=== PATIENT | male | born 1945 | race Caucasian/White ===

== ENCOUNTER 2019-04-26 12:19 | Inpatient (IN) ==
[2019-04-26 13:43] LABS: Basophils % 0.2 % (0.0-0.8); Eosinophils % 0.1 % (0.00-10.9); Hematocrit 48.6 VOL% (42.0-52.0); Hemoglobin 15.7 GM/DL (14.0-18.0); Immature Granulocytes % 0.6 %; Immature Granulocytes Absolute 0.05 #; Lymphocytes # 1.1 10*3/uL (1.4-4.0); Lymphocytes % 12.2 % (21.2-54.2); Mean Corpuscular HGB Conc 32.3 GM/DL (32-36); Mean Platelet Volume 11.8 FL (9.6-12.0); Monocytes % 8.1 % (1.7-12.7); Neutrophils % 78.8 % (38.7-73.9); Platelet Count 203 T/CUMM (130-400); Red Blood Count 5.65 MC/CUMM (3.8-5.5); Red Cell Distribution Width 14.2 % (9.3-17.3); White Blood Count 8.9 T/CUMM (4-12)
[2019-04-26 13:52] LABS: PT Patient Result 10.9 SECS (9.6-12.2); Partial Thromboplastin Time 26.1 SECS (20.8-36.0)
[2019-04-26 14:01] LABS: Albumin 3.6 G/DL (3.4-5.0); Bilirubin,Total 0.5 MG/DL (0.2-1.0); Calcium 8.7 MG/DL (8.5-10.1); Osmolality,Calculated 281.4 MOS/KG (273-304); Total Protein 6.7 G/DL (6.4-8.3)
[2019-04-26] MEDS ORDERED: ENOXAPARIN 100 MG/ML SYRINGE SUBCUT STA (14:16)
[2019-04-26] MEDS ORDERED: NITROGLYCERIN 2% OINT 1 INCH/GM PACK TOP STA (14:17)
[2019-04-26] MEDS ORDERED: ASPIRIN CHEW 81 MG TABLET PO STA (14:18)
[2019-04-26] MEDS ORDERED: ONDANSETRON 4 MG/2 ML VIAL IV PRN (16:04)
[2019-04-26] MEDS ORDERED: ACETAMINOPHEN 325 MG TABLET PO PRN (16:04)
[2019-04-26] MEDS ORDERED: METOPROLOL TARTRATE 5 MG/5 ML VIAL IV ONE (16:16)
[2019-04-26] MEDS: SODIUM CHLORIDE 0.9% 1,000 ML IV SCH (16:33)
[2019-04-26] MEDS ORDERED: hydrALAZINE 20 MG/1 ML VIAL IV PRN (16:37)
[2019-04-26] MEDS ORDERED: carvediloL 3.125 MG TABLET PO SCH (17:00)
[2019-04-26] MEDS: NITROGLYCERIN 2% OINT 1 INCH/GM PACK TOP SCH ×2 (17:07→23:12)
[2019-04-26 17:44] LABS: Troponin I 0.605 NG/ML (0.00-0.045)
[2019-04-26 20:05] LABS: Troponin I 0.597 NG/ML (0.00-0.045)
[2019-04-26] MEDS: DOCUSATE SODIUM 100 MG CAPSULE PO SCH (20:20)
[2019-04-26] MEDS ORDERED: ROSUVASTATIN 20 MG TABLET PO SCH (21:00)
[2019-04-26 22:06] LABS: Troponin I 0.714 NG/ML (0.00-0.045)
[2019-04-27] MEDS: SODIUM CHLORIDE 0.9% 1,000 ML IV SCH ×4 (00:25→17:31)
[2019-04-27 04:47] LABS: Basophils % 0.4 % (0.0-0.8); Eosinophils % 0.5 % (0.00-10.9); Hemoglobin 14.1 GM/DL (14.0-18.0); Immature Granulocytes % 0.4 %; Immature Granulocytes Absolute 0.03 #; Lymphocytes # 1.2 10*3/uL (1.4-4.0); Mean Corpuscular HGB Conc 32.8 GM/DL (32-36); Mean Corpuscular Volume 86.9 FL (87-102); Mean Platelet Volume 12.5 FL (9.6-12.0); Monocytes % 8.7 % (1.7-12.7); Platelet Count 172 T/CUMM (130-400); Red Blood Count 4.95 MC/CUMM (3.8-5.5); Red Cell Distribution Width 14.2 % (9.3-17.3)
[2019-04-27 05:07] LABS: Calcium 8.7 MG/DL (8.5-10.1); Osmolality,Calculated 288.7 MOS/KG (273-304)
[2019-04-27 05:34] LABS: Risk Ratio 5.65; VLDL CHOLESTEROL 27.6 MG/DL
[2019-04-27] MEDS: NITROGLYCERIN 2% OINT 1 INCH/GM PACK TOP SCH (05:44)
[2019-04-27] MEDS ORDERED: diphenhydrAMINE CAP 25 MG CAPSULE PO ONE (06:00)
[2019-04-27] MEDS ORDERED: DIAZEPAM 5 MG TABLET PO ONE (06:00)
[2019-04-27] MEDS ORDERED: HEPARIN/NACL 0.9% 2 UNITS/ML 1,000 ML IV ONE (06:48)
[2019-04-27] MEDS ORDERED: NITROGLYCERIN DRIP 50 MG/250 ML BOTTLE IV ONE (06:48)
[2019-04-27] MEDS ORDERED: VERAPAMIL 5 MG/2 ML VIAL ONE (06:48)
[2019-04-27] MEDS ORDERED: LIDOCAINE 1% 20 ML VIAL ONE (06:48)
[2019-04-27] MEDS ORDERED: MIDAZOLAM 2 MG/2 ML VIAL ONE (07:24)
[2019-04-27] MEDS ORDERED: fentaNYL 100 MCG/2 ML VIAL ONE (07:24)
[2019-04-27] MEDS ORDERED: ENOXAPARIN 60 MG/0.6 ML SYRINGE ONE (07:32)
[2019-04-27] MEDS ORDERED: flumazeniL 0.5 MG/5 ML VIAL IV ONE (07:51)
[2019-04-27] MEDS ORDERED: NITROGLYCERIN SL 0.4 MG TABLET SL PRN (08:01)
[2019-04-27] MEDS ORDERED: ZALEPLON 5 MG CAPSULE PO PRN (08:01)
[2019-04-27] MEDS: ASPIRIN EC 81 MG TABLET PO SCH (10:00)
[2019-04-27] MEDS: LOSARTAN 50 MG TABLET PO SCH (10:00)
[2019-04-27] MEDS: ISOSORBIDE MONONITRATE 30 MG TABLET PO SCH (10:00)
[2019-04-27] MEDS: carvediloL 6.25 MG TABLET PO SCH ×2 (10:00→17:11)
[2019-04-27] MEDS: PANTOPRAZOLE 40 MG TABLET PO SCH (10:00)
[2019-04-27] MEDS: DOCUSATE SODIUM 100 MG CAPSULE PO SCH ×2 (10:00→20:22)
[2019-04-27] MEDS: ROSUVASTATIN 20 MG TABLET PO SCH (20:22)
[2019-04-28 04:45] LABS: Basophils % 0.3 % (0.0-0.8); Eosinophils # 0.1 10*3/uL (0.0-0.87); Eosinophils % 1.4 % (0.00-10.9); Hematocrit 42.3 VOL% (42.0-52.0); Hemoglobin 13.4 GM/DL (14.0-18.0); Immature Granulocytes % 0.3 %; Immature Granulocytes Absolute 0.02 #; Lymphocytes # 1.3 10*3/uL (1.4-4.0); Mean Corpuscular HGB Conc 31.7 GM/DL (32-36); Mean Corpuscular Volume 89.1 FL (87-102); Mean Platelet Volume 12.4 FL (9.6-12.0); Monocytes % 13.1 % (1.7-12.7); Neutrophils % 65.9 % (38.7-73.9); Platelet Count 148 T/CUMM (130-400); Red Blood Count 4.75 MC/CUMM (3.8-5.5); Red Cell Distribution Width 14.2 % (9.3-17.3)
[2019-04-28 05:11] LABS: Calcium 8.7 MG/DL (8.5-10.1); Osmolality,Calculated 286.8 MOS/KG (273-304)
[2019-04-28] MEDS ORDERED: ALPRAZolam 0.25 MG TABLET PO PRN (06:43)
[2019-04-28] MEDS: ISOSORBIDE MONONITRATE 30 MG TABLET PO SCH (08:27)
[2019-04-28] MEDS: PANTOPRAZOLE 40 MG TABLET PO SCH (08:27)
[2019-04-28] MEDS: ASPIRIN EC 81 MG TABLET PO SCH (08:27)
[2019-04-28] MEDS: LOSARTAN 50 MG TABLET PO SCH (08:27)
[2019-04-28] MEDS: carvediloL 6.25 MG TABLET PO SCH ×2 (08:27→16:53)
[2019-04-28] MEDS: DOCUSATE SODIUM 100 MG CAPSULE PO SCH ×2 (08:27→20:10)
[2019-04-28] MEDS ORDERED: AMIODARONE 200 MG TABLET PO SCH (09:00)
[2019-04-28] MEDS ORDERED: AMIODARONE INJ 450 MG in DEXTROSE 5% 241 ML IV SCH (09:00)
[2019-04-28] MEDS: SODIUM CHLORIDE 0.9% 1,000 ML IV SCH ×2 (15:27→15:33)
[2019-04-28] MEDS: AMIODARONE INJ 450 MG in DEXTROSE 5% 241 ML IV SCH (19:06)
[2019-04-28] MEDS: ROSUVASTATIN 20 MG TABLET PO SCH (20:10)
[2019-04-29] MEDS ORDERED: ALPRAZolam 0.5 MG TABLET PO ONE (04:25)
[2019-04-29 04:40] LABS: Basophils % 0.2 % (0.0-0.8); Eosinophils # 0.1 10*3/uL (0.0-0.87); Hematocrit 47.7 VOL% (42.0-52.0); Hemoglobin 15.6 GM/DL (14.0-18.0); Immature Granulocytes % 0.5 %; Immature Granulocytes Absolute 0.05 #; Lymphocytes # 1.3 10*3/uL (1.4-4.0); Lymphocytes % 12.3 % (21.2-54.2); Mean Corpuscular HGB Conc 32.7 GM/DL (32-36); Mean Corpuscular Volume 86.4 FL (87-102); Mean Platelet Volume 12.9 FL (9.6-12.0); Monocytes % 9.8 % (1.7-12.7); Neutrophils % 76.2 % (38.7-73.9); Platelet Count 190 T/CUMM (130-400); Red Blood Count 5.52 MC/CUMM (3.8-5.5); Red Cell Distribution Width 14.3 % (9.3-17.3); White Blood Count 10.8 T/CUMM (4-12)
[2019-04-29] MEDS ORDERED: FUROSEMIDE 40 MG/4 ML VIAL IV ONE (04:54)
[2019-04-29 05:00] LABS: Calcium 8.9 MG/DL (8.5-10.1); Osmolality,Calculated 277.8 MOS/KG (273-304)
[2019-04-29] MEDS ORDERED: FUROSEMIDE 40 MG/4 ML VIAL IV SCH (09:00)
[2019-04-29] MEDS: ASPIRIN EC 81 MG TABLET PO SCH (09:16)
[2019-04-29] MEDS: ALPRAZolam 0.5 MG TABLET PO PRN (09:16)
[2019-04-29] MEDS: PANTOPRAZOLE 40 MG TABLET PO SCH (09:17)
[2019-04-29] MEDS: DOCUSATE SODIUM 100 MG CAPSULE PO SCH ×2 (09:17→21:05)
[2019-04-29] MEDS: LOSARTAN 50 MG TABLET PO SCH (09:17)
[2019-04-29] MEDS: carvediloL 6.25 MG TABLET PO SCH ×2 (09:17→17:08)
[2019-04-29] MEDS: SODIUM CHLORIDE 0.9% 1,000 ML IV SCH (11:20)
[2019-04-29] MEDS: AMIODARONE INJ 450 MG in DEXTROSE 5% 241 ML IV SCH (11:21)
[2019-04-29] MEDS: NITROGLYCERIN 2% OINT 1 INCH/GM PACK TOP SCH ×2 (13:49→17:08)
[2019-04-29] MEDS: ROSUVASTATIN 20 MG TABLET PO SCH (21:05)
[2019-04-30] MEDS: NITROGLYCERIN 2% OINT 1 INCH/GM PACK TOP SCH ×4 (00:55→18:05)
[2019-04-30 04:30] LABS: Calcium 8.3 MG/DL (8.5-10.1); Osmolality,Calculated 285.4 MOS/KG (273-304)
[2019-04-30] MEDS: SODIUM CHLORIDE 0.9% 1,000 ML IV SCH ×2 (04:30→19:50)
[2019-04-30] MEDS: ALPRAZolam 0.5 MG TABLET PO PRN (04:31)
[2019-04-30] MEDS ORDERED: DEXTROSE 10% 250 ML BAG IV PRN (08:35)
[2019-04-30] MEDS ORDERED: GLUCAGON 1 MG VIAL IM PRN (08:35)
[2019-04-30] MEDS: LOSARTAN 50 MG TABLET PO SCH (08:36)
[2019-04-30] MEDS: PANTOPRAZOLE 40 MG TABLET PO SCH (08:36)
[2019-04-30] MEDS: DOCUSATE SODIUM 100 MG CAPSULE PO SCH ×2 (08:36→20:42)
[2019-04-30] MEDS: carvediloL 6.25 MG TABLET PO SCH ×2 (08:36→16:19)
[2019-04-30] MEDS: ASPIRIN EC 81 MG TABLET PO SCH (08:36)
[2019-04-30 10:45] LABS: ABG Base Excess 0.3 MMOL/L (-2.5-2.5); ABG HCO3 24.7 MMOL/L (20-26); ABG Oxygen Saturation 99.3 % (95-100); ABG PCO2 41.7 MM HG (35-48); ABG PH 7.392 (7.35-7.45); ABG TCO2 21.6 MMOL/L (23-27)
[2019-04-30] MEDS: CHLORHEXIDINE 0.12% ORAL RINSE 60 ML BOTTLE SWISH/SPIT SCH ×2 (12:19→21:07)
[2019-04-30] MEDS: CHLORHEXIDINE 4% SOLN 118 ML BOTTLE TOP SCH ×2 (17:25→20:42)
[2019-04-30] MEDS: ROSUVASTATIN 20 MG TABLET PO SCH (20:42)
[2019-05-01] MEDS: NITROGLYCERIN 2% OINT 1 INCH/GM PACK TOP SCH ×3 (00:09→16:37)
[2019-05-01] MEDS ORDERED: VANCOMYCIN 1,000 MG VIAL ONE (04:41)
[2019-05-01] MEDS ORDERED: VANCOMYCIN 500 MG VIAL ONE (04:41)
[2019-05-01] MEDS ORDERED: PAPAVERINE 60 MG/2 ML VIAL ONE ×2 (04:41→09:39)
[2019-05-01 06:21] LABS: Calcium 8.4 MG/DL (8.5-10.1); Osmolality,Calculated 285.4 MOS/KG (273-304)
[2019-05-01] MEDS ORDERED: CEFUROXIME INJ 1,500 MG in SYRINGE 1 EACH IV ONE (06:30)
[2019-05-01] MEDS ORDERED: DIAZEPAM 5 MG TABLET PO ONE (06:30)
[2019-05-01 07:42] LABS: ABG Base Excess 0.1 MMOL/L (-2.5-2.5); ABG HCO3 24.6 MMOL/L (20-26); ABG Oxygen Saturation 99.9 % (95-100); ABG PCO2 29.1 MM HG (35-48); ABG PH 7.493 (7.35-7.45); ABG TCO2 19.5 MMOL/L (23-27); Glucose Heart Surgery 106 MG/DL (74-106); Hematocrit Heart Surgery 38.7 PERCENT (42-52); Hemoglobin Heart Surgery 12.6 G/DL (14.0-18.0); Ionized Calcium Arterial 1.26 MMOL/L (1.21-1.46); PCO2 Patient Temp Arterial 29.1 MMHG; PH Patient Temp Arterial 7.493; Patient Temperature 37 CELCIUS; Potassium Heart/CVR 3.4 MMOL/L (3.5-5.1); Sodium Heart/CVR 135 MMOL/L (135-145)
[2019-05-01 08:11] LABS: Apearance,Urine CLEAR (Clear); Bilirubin,Urine Negative (Negative); Blood, Urine Small mg/dL (Negative); Glucose,Urine (UA) Negative (Negative); Ketones,Urine Negative (Negative); Mucus,Urine Occasional /LPF (Occasional); Nitrite,Urine Negative (Negative); Protein,Urine Negative; RBC,Urine 8 /HPF (0-4); Urine Color Yellow (Yellow); Urine Specific Gravity 1.021 (1.001-1.035); Urine Urobilinogen < 2.0 EU/DL (0.2-1.0); WBC,Urine 1 /HPF (0-6)
[2019-05-01 09:20] LABS: Hematocrit Heart Surgery 31.3 PERCENT (42-52); Hemoglobin Heart Surgery 10.1 G/DL (14.0-18.0); PCO2 Patient Temp Venous 28.8 MM HG; PH Patient Temp Venous 7.535; PO2 Patient Temp Venous 35.6 MM HG; VBG Base Excess 2.3 MEQ/L (0-4); VBG HCO3 26.2 MEQ/L (24-28); VBG Oxygen Saturation 84.8 %; VBG PCO2 31.7 MMHG (41-51); VBG PH 7.504; VBG PO2 40.9 MMHG (17-40)
[2019-05-01 09:51] LABS: PCO2 Patient Temp Venous 30.2 MM HG; PH Patient Temp Venous 7.519; PO2 Patient Temp Venous 43.5 MM HG; Potassium Heart/CVR 3.5 MMOL/L (3.5-5.1); VBG Base Excess 2.3 MEQ/L (0-4); VBG HCO3 26.3 MEQ/L (24-28); VBG Oxygen Saturation 91.9 %; VBG PCO2 34.9 MMHG (41-51); VBG PH 7.474; VBG PO2 53.3 MMHG (17-40)
[2019-05-01] MEDS ORDERED: SODIUM BICARBONATE 50 MEQ/50 ML VIAL IV ONE ×2 (10:16→12:05)
[2019-05-01] MEDS ORDERED: CALCIUM CHLORIDE 1,000 MG/10 ML SYRINGE IV ONE (10:16)
[2019-05-01] MEDS ORDERED: PHENYLEPHRINE DRIP 40 MG/250 ML PREMIX IV ONE (10:16)
[2019-05-01] MEDS ORDERED: NITROPRUSSIDE 50 MG/2 ML VIAL ONE (10:16)
[2019-05-01] MEDS ORDERED: POTASSIUM CHLORIDE RIDER 100 ML IV ONE (10:17)
[2019-05-01] MEDS ORDERED: ALBUMIN 5% 12.5 GM/250 ML VIAL IV ONE (10:17)
[2019-05-01 10:21] LABS: Hematocrit Heart Surgery 32.7 PERCENT (42-52); Hemoglobin Heart Surgery 10.6 G/DL (14.0-18.0); PCO2 Patient Temp Venous 28.3 MM HG; PH Patient Temp Venous 7.547; PO2 Patient Temp Venous 40.7 MM HG; Potassium Heart/CVR 3.7 MMOL/L (3.5-5.1); VBG Base Excess 2.8 MEQ/L (0-4); VBG HCO3 26.8 MEQ/L (24-28); VBG Oxygen Saturation 92.3 %; VBG PCO2 34.3 MMHG (41-51); VBG PH 7.486; VBG PO2 53.5 MMHG (17-40)
[2019-05-01 10:51] LABS: Hemoglobin Heart Surgery 10.7 G/DL (14.0-18.0); PCO2 Patient Temp Venous 27.9 MM HG; PH Patient Temp Venous 7.551; PO2 Patient Temp Venous 38.1 MM HG; Potassium Heart/CVR 3.6 MMOL/L (3.5-5.1); VBG Base Excess 2.8 MEQ/L (0-4); VBG HCO3 26.7 MEQ/L (24-28); VBG Oxygen Saturation 90.4 %; VBG PCO2 33.8 MMHG (41-51); VBG PH 7.49; VBG PO2 50.1 MMHG (17-40)
[2019-05-01 11:23] LABS: Hematocrit Heart Surgery 32.9 PERCENT (42-52); Hemoglobin Heart Surgery 10.7 G/DL (14.0-18.0); PH Patient Temp Venous 7.461; PO2 Patient Temp Venous 41.2 MM HG; Potassium Heart/CVR 3.7 MMOL/L (3.5-5.1); VBG Base Excess 2.1 MEQ/L (0-4); VBG HCO3 25.9 MEQ/L (24-28); VBG PH 7.461; VBG PO2 41.2 MMHG (17-40)
[2019-05-01] MEDS: SODIUM CHLORIDE 0.9% 1,000 ML IV SCH ×2 (11:34→11:35)
[2019-05-01] MEDS: CHLORHEXIDINE 4% SOLN 118 ML BOTTLE TOP SCH (11:35)
[2019-05-01] MEDS: ASPIRIN EC 81 MG TABLET PO SCH (11:35)
[2019-05-01] MEDS: DOCUSATE SODIUM 100 MG CAPSULE PO SCH (11:35)
[2019-05-01] MEDS: carvediloL 6.25 MG TABLET PO SCH (11:35)
[2019-05-01] MEDS: CHLORHEXIDINE 0.12% ORAL RINSE 60 ML BOTTLE SWISH/SPIT SCH ×2 (11:36→21:10)
[2019-05-01] MEDS: PANTOPRAZOLE 40 MG TABLET PO SCH (11:36)
[2019-05-01] MEDS ORDERED: MAGNESIUM SULFATE 5 GM/10 ML VIAL IV ONE (12:05)
[2019-05-01] MEDS ORDERED: ALBUMIN 25% 25 GM/100 ML VIAL IV ONE (12:05)
[2019-05-01] MEDS ORDERED: MANNITOL 100 GM/500 ML BAG IV ONE (12:05)
[2019-05-01] MEDS ORDERED: DEXTROSE 5% KCL 20 MEQ 20 MEQ/1,000 ML BAG IV ONE (12:05)
[2019-05-01] MEDS ORDERED: PROTAMINE SULFATE 250 MG/25 ML VIAL IV ONE (12:05)
[2019-05-01] MEDS ORDERED: LIDOCAINE 2% TOP JELLY 5 ML TUBE TOP ONE (12:05)
[2019-05-01] MEDS ORDERED: HEPARIN 10,000 UNIT/10 ML VIAL ONE (12:06)
[2019-05-01] MEDS ORDERED: FUROSEMIDE 20 MG/2 ML VIAL ONE (12:06)
[2019-05-01] MEDS ORDERED: methylPREDNISolone SOD SUC 1,000 MG/8 ML VIAL ONE (12:06)
[2019-05-01 12:17] LABS: ABG Base Excess 0.3 MMOL/L (-2.5-2.5); ABG HCO3 21.9 MMOL/L (20-26); ABG Oxygen Saturation 98.1 % (95-100); ABG PCO2 26.4 MM HG (35-48); ABG PH 7.536 (7.35-7.45); ABG PO2 124.6 MM HG (80-95); ABG TCO2 22.7 MMOL/L (23-27); Glucose Heart Surgery 160 MG/DL (74-106); Hemoglobin Heart Surgery 11.3 G/DL (14.0-18.0); Ionized Calcium Arterial 1.43 MMOL/L (1.21-1.46); PCO2 Patient Temp Arterial 26.4 MMHG; PH Patient Temp Arterial 7.536; PO2 Patient Temp Arterial 124.6 MM HG; Patient Temperature 37 CELCIUS; Potassium Heart/CVR 3.1 MMOL/L (3.5-5.1); Sodium Heart/CVR 135 MMOL/L (135-145)
[2019-05-01] MEDS: LACTATED RINGERS 1,000 ML IV PRN ×3 (13:15→17:01)
[2019-05-01] MEDS ORDERED: MORPHINE 4 MG/1 ML VIAL IV PRN (13:30)
[2019-05-01] MEDS ORDERED: MAGNESIUM SULF RIDER 2 GM in PREMIX 1 EACH IV PRN (13:30)
[2019-05-01] MEDS ORDERED: INSULIN REGULAR 100 UNIT/ML IV ONE (13:30)
[2019-05-01] MEDS ORDERED: NITROPRUSSIDE 100 MG in DEXTROSE 5% 250 ML IV PRN (13:30)
[2019-05-01] MEDS ORDERED: ONDANSETRON 4 MG/2 ML VIAL IV PRN (13:30)
[2019-05-01] MEDS ORDERED: LACTATED RINGERS 250 ML IV PRN (13:30)
[2019-05-01] MEDS ORDERED: INSULIN REGULAR 100 UNIT/ML IV PRN (13:30)
[2019-05-01] MEDS ORDERED: SODIUM CHLORIDE 0.45% 1,000 ML IV SCH ×2 (13:30)
[2019-05-01] MEDS ORDERED: PHENYLEPHRINE DRIP 40 MG/250 ML PREMIX IV PRN (13:30)
[2019-05-01] MEDS ORDERED: MORPHINE 10 MG/1 ML VIAL IV PRN (13:30)
[2019-05-01] MEDS ORDERED: MAGNESIUM SULF RIDER 4 GM in PREMIX 1 EACH IV PRN (13:30)
[2019-05-01] MEDS ORDERED: VECURONIUM 10 MG VIAL IV PRN ×2 (13:30)
[2019-05-01] MEDS ORDERED: CALCIUM CHLORIDE 1,000 MG/10 ML SYRINGE IV PRN (13:30)
[2019-05-01] MEDS ORDERED: INSULIN REGULAR DRIP 100 ML IV SCH (13:30)
[2019-05-01] MEDS ORDERED: ACETAMINOPHEN 650 MG SUPP RECTAL PRN (13:30)
[2019-05-01] MEDS ORDERED: MIDAZOLAM 10 MG/2 ML VIAL IV PRN (13:30)
[2019-05-01] MEDS ORDERED: DEXTROSE 50% 25 GM/50 ML VIAL IV PRN ×2 (13:30)
[2019-05-01 13:34] LABS: Basophils % 0.1 % (0.0-0.8); Eosinophils # 0.1 10*3/uL (0.0-0.87); Eosinophils % 0.4 % (0.00-10.9); Hematocrit 36.1 VOL% (42.0-52.0); Immature Granulocytes % 0.6 %; Immature Granulocytes Absolute 0.08 #; Lymphocytes # 0.7 10*3/uL (1.4-4.0); Mean Corpuscular HGB Conc 33.2 GM/DL (32-36); Mean Corpuscular Volume 85.7 FL (87-102); Mean Platelet Volume 12.3 FL (9.6-12.0); Monocytes % 6.4 % (1.7-12.7); Neutrophils % 87.5 % (38.7-73.9); Platelet Count 101 T/CUMM (130-400); Red Blood Count 4.21 MC/CUMM (3.8-5.5); Red Cell Distribution Width 14.1 % (9.3-17.3); White Blood Count 13.6 T/CUMM (4-12)
[2019-05-01 13:40] LABS: ABG HCO3 25.3 MMOL/L (20-26); ABG Oxygen Saturation 98.4 % (95-100); ABG PCO2 29.3 MM HG (35-48); ABG PH 7.506 (7.35-7.45); ABG TCO2 20.3 MMOL/L (23-27); Glucose Heart Surgery 157 MG/DL (74-106); Hemoglobin Heart Surgery 12.3 G/DL (14.0-18.0); Potassium Heart/CVR 3.8 MMOL/L (3.5-5.1)
[2019-05-01 13:41] LABS: INR 1.2; PT Patient Result 12.6 SECS (9.6-12.2); Partial Thromboplastin Time 26.2 SECS (20.8-36.0)
[2019-05-01] MEDS: POTASSIUM CHLORIDE RIDER 20 MEQ in PREMIX 1 EACH IV PRN ×4 (13:47→19:55)
[2019-05-01] MEDS ORDERED: SUFentanil 250 MCG/5 ML AMP ONE (13:53)
[2019-05-01] MEDS ORDERED: CALCIUM CHLORIDE 1,000 MG/10 ML VIAL IV ONE (13:53)
[2019-05-01] MEDS ORDERED: HEPARIN/NACL 0.9% 2 UNITS/ML 500 ML IV ONE (13:53)
[2019-05-01] MEDS ORDERED: SEVOFLURANE 1 UNIT/15 MINUTE INH ONE (13:53)
[2019-05-01] MEDS ORDERED: PHENYLEPHRINE DRIP 20 MG/250 ML PREMIX IV ONE (13:53)
[2019-05-01] MEDS ORDERED: MIDAZOLAM 10 MG/2 ML VIAL ONE ×2 (13:54)
[2019-05-01] MEDS ORDERED: ePHEDrine 50 MG/ML AMP ONE (13:54)
[2019-05-01] MEDS ORDERED: SODIUM CHLORIDE 0.9% 1,000 ML IV ONE (13:55)
[2019-05-01] MEDS ORDERED: AMINOCAPROIC ACID 5,000 MG/20 ML VIAL ONE (13:55)
[2019-05-01] MEDS ORDERED: VECURONIUM 10 MG VIAL IV ONE (13:55)
[2019-05-01] MEDS ORDERED: ETOMIDATE 40 MG/20 ML VIAL IV ONE (13:55)
[2019-05-01] MEDS ORDERED: NITROGLYCERIN DRIP 50 MG/250 ML BOTTLE IV ONE (13:55)
[2019-05-01] MEDS ORDERED: ESMOLOL 100 MG/10 ML VIAL IV ONE (13:55)
[2019-05-01] MEDS ORDERED: SODIUM CHLORIDE 0.9% 250 ML IV ONE (13:55)
[2019-05-01] MEDS ORDERED: LACTATED RINGERS 1,000 ML IV ONE (13:55)
[2019-05-01 13:58] LABS: CKMB % 7.5 %
[2019-05-01] MEDS ORDERED: KETOROLAC 30 MG/1 ML VIAL IV SCH (14:00)
[2019-05-01] MEDS: ALBUMIN 5% 12.5 GM in PREMIX 1 EACH IV PRN ×5 (14:02→22:55)
[2019-05-01 14:08] LABS: Troponin I 6.71 NG/ML (0.00-0.045)
[2019-05-01 14:12] LABS: Albumin 2.6 G/DL (3.4-5.0); Bilirubin,Total 0.9 MG/DL (0.2-1.0); Calcium 9.4 MG/DL (8.5-10.1); Osmolality,Calculated 288.3 MOS/KG (273-304); Total Protein 5.2 G/DL (6.4-8.3)
[2019-05-01] MEDS: POTASSIUM CHLORIDE RIDER 10 MEQ in PREMIX 1 EACH IV PRN ×2 (14:22→16:13)
[2019-05-01 15:19] LABS: ABG Base Excess 0.9 MMOL/L (-2.5-2.5); ABG HCO3 25.2 MMOL/L (20-26); ABG Oxygen Saturation 96.2 % (95-100); ABG PCO2 32.8 MM HG (35-48); ABG PH 7.472 (7.35-7.45); ABG PO2 73.9 MM HG (80-95); ABG TCO2 21.2 MMOL/L (23-27); Glucose Heart Surgery 163 MG/DL (74-106); Hematocrit Heart Surgery 36.5 PERCENT (42-52); Hemoglobin Heart Surgery 11.8 G/DL (14.0-18.0); Potassium Heart/CVR 3.8 MMOL/L (3.5-5.1)
[2019-05-01] MEDS: MIDAZOLAM 2 MG/2 ML VIAL IV PRN ×2 (17:09→21:41)
[2019-05-01] MEDS: CEFUROXIME INJ 1,500 MG in SYRINGE 1 EACH IV SCH (18:10)
[2019-05-01 18:50] LABS: ABG Base Excess 0.8 MMOL/L (-2.5-2.5); ABG HCO3 25.1 MMOL/L (20-26); ABG Oxygen Saturation 96.2 % (95-100); ABG PCO2 34.4 MM HG (35-48); ABG PH 7.457 (7.35-7.45); ABG PO2 75.6 MM HG (80-95); Glucose Heart Surgery 147 MG/DL (74-106); Hematocrit Heart Surgery 31.5 PERCENT (42-52); Hemoglobin Heart Surgery 10.2 G/DL (14.0-18.0); Potassium Heart/CVR 3.4 MMOL/L (3.5-5.1)
[2019-05-01 19:37] LABS: ABG Base Excess 0.8 MMOL/L (-2.5-2.5); ABG HCO3 25.1 MMOL/L (20-26); ABG Oxygen Saturation 98.6 % (95-100); ABG PCO2 35.9 MM HG (35-48); ABG PH 7.443 (7.35-7.45); ABG TCO2 22.2 MMOL/L (23-27); Glucose Heart Surgery 148 MG/DL (74-106); Hematocrit Heart Surgery 31.8 PERCENT (42-52); Hemoglobin Heart Surgery 10.3 G/DL (14.0-18.0); Potassium Heart/CVR 3.5 MMOL/L (3.5-5.1)
[2019-05-01] MEDS: ASCORBIC ACID 500 MG TABLET PO SCH (21:10)
[2019-05-01 21:30] LABS: ABG Base Excess 1.2 MMOL/L (-2.5-2.5); ABG HCO3 25.5 MMOL/L (20-26); ABG Oxygen Saturation 98.3 % (95-100); ABG PCO2 34.1 MM HG (35-48); ABG PH 7.465 (7.35-7.45); ABG TCO2 22.2 MMOL/L (23-27); Glucose Heart Surgery 141 MG/DL (74-106); Hematocrit Heart Surgery 31.6 PERCENT (42-52); Hemoglobin Heart Surgery 10.2 G/DL (14.0-18.0); Potassium Heart/CVR 3.9 MMOL/L (3.5-5.1)
[2019-05-01 22:09] LABS: CKMB % 5.5 %
[2019-05-01 22:17] LABS: Troponin I 7.48 NG/ML (0.00-0.045)
[2019-05-01] MEDS ORDERED: FUROSEMIDE 40 MG/4 ML VIAL IV ONE (22:39)
[2019-05-01] MEDS ORDERED: PROPOFOL 1,000 MG/100 ML BOTTLE IV SCH (23:00)
[2019-05-01 23:37] LABS: ABG Base Excess 0.9 MMOL/L (-2.5-2.5); ABG HCO3 25.3 MMOL/L (20-26); ABG Oxygen Saturation 98.7 % (95-100); ABG PCO2 35.2 MM HG (35-48); ABG PH 7.452 (7.35-7.45); ABG TCO2 22.3 MMOL/L (23-27); Glucose Heart Surgery 134 MG/DL (74-106); Hematocrit Heart Surgery 30.2 PERCENT (42-52); Hemoglobin Heart Surgery 9.8 G/DL (14.0-18.0); Potassium Heart/CVR 3.4 MMOL/L (3.5-5.1)
[2019-05-02] MEDS: POTASSIUM CHLORIDE RIDER 20 MEQ in PREMIX 1 EACH IV PRN ×3 (00:01→03:29)
[2019-05-02] MEDS: ALBUMIN 5% 12.5 GM in PREMIX 1 EACH IV PRN (00:54)
[2019-05-02 01:00] LABS: Hematocrit 29.5 VOL% (42.0-52.0); Hemoglobin 9.9 GM/DL (14.0-18.0)
[2019-05-02] MEDS: LACTATED RINGERS 1,000 ML IV PRN (01:08)
[2019-05-02 03:10] LABS: Basophils % 0.1 % (0.0-0.8); Hematocrit 30.4 VOL% (42.0-52.0); Hemoglobin 10.2 GM/DL (14.0-18.0); Immature Granulocytes % 0.3 %; Immature Granulocytes Absolute 0.03 #; Lymphocytes # 0.4 10*3/uL (1.4-4.0); Lymphocytes % 3.8 % (21.2-54.2); Mean Corpuscular HGB Conc 33.6 GM/DL (32-36); Mean Corpuscular Volume 86.1 FL (87-102); Mean Platelet Volume 12.8 FL (9.6-12.0); Monocytes % 5.6 % (1.7-12.7); Neutrophils % 90.2 % (38.7-73.9); Platelet Count 85 T/CUMM (130-400); Red Blood Count 3.53 MC/CUMM (3.8-5.5); Red Cell Distribution Width 14.3 % (9.3-17.3); White Blood Count 10.7 T/CUMM (4-12)
[2019-05-02 03:21] LABS: ABG Base Excess 1.4 MMOL/L (-2.5-2.5); ABG HCO3 25.6 MMOL/L (20-26); ABG PCO2 33.7 MM HG (35-48); ABG TCO2 21.7 MMOL/L (23-27); Glucose Heart Surgery 135 MG/DL (74-106); Hematocrit Heart Surgery 35.8 PERCENT (42-52); Hemoglobin Heart Surgery 11.6 G/DL (14.0-18.0); Potassium Heart/CVR 3.5 MMOL/L (3.5-5.1)
[2019-05-02 03:27] LABS: Albumin 3.4 G/DL (3.4-5.0); Bilirubin,Direct 0.23 MG/DL (0.0-0.20); Bilirubin,Total 0.8 MG/DL (0.2-1.0); Calcium 8.6 MG/DL (8.5-10.1); Osmolality,Calculated 293.7 MOS/KG (273-304); Total Protein 5.4 G/DL (6.4-8.3)
[2019-05-02 03:34] LABS: CKMB % 5.4 %
[2019-05-02 03:51] LABS: Troponin I 7.38 NG/ML (0.00-0.045)
[2019-05-02 04:03] LABS: Lymphocytes 7 % (20-55); Segmented Neutrophils 89 % (50-85); Total Cells Counted 100
[2019-05-02 04:04] LABS: Anisocytosis Slight; Hypochromasia Slight; Microcytosis 1+; Platelet Estimate Decreased
[2019-05-02 04:05] LABS: Ovalocytes Slight; Stomatocytes Slight
[2019-05-02] MEDS: POTASSIUM CHLORIDE RIDER 10 MEQ in PREMIX 1 EACH IV PRN (04:12)
[2019-05-02] MEDS: CEFUROXIME INJ 1,500 MG in SYRINGE 1 EACH IV SCH (05:44)
[2019-05-02 08:40] LABS: ABG Base Excess -2.2 MMOL/L (-2.5-2.5); ABG HCO3 22.6 MMOL/L (20-26); ABG Oxygen Saturation 99.2 % (95-100); ABG PCO2 40.3 MM HG (35-48); ABG PH 7.364 (7.35-7.45); ABG TCO2 20.5 MMOL/L (23-27); Glucose Heart Surgery 182 MG/DL (74-106); Hematocrit Heart Surgery 36.3 PERCENT (42-52); Hemoglobin Heart Surgery 11.8 G/DL (14.0-18.0); Potassium Heart/CVR 4.2 MMOL/L (3.5-5.1)
[2019-05-02] MEDS ORDERED: ACETAMINOPHEN 325 MG TABLET PO PRN (09:55)
[2019-05-02] MEDS ORDERED: DEXTROSE 10% 250 ML BAG IV PRN (09:55)
[2019-05-02] MEDS ORDERED: MAGNESIUM SULF RIDER 4 GM in PREMIX 1 EACH IV PRN (09:55)
[2019-05-02] MEDS ORDERED: MAGNESIUM SULF RIDER 2 GM in PREMIX 1 EACH IV PRN (09:55)
[2019-05-02] MEDS ORDERED: ZALEPLON 5 MG CAPSULE PO PRN (09:55)
[2019-05-02] MEDS ORDERED: ONDANSETRON 4 MG/2 ML VIAL IV PRN (09:55)
[2019-05-02] MEDS ORDERED: ALUMINUM/MAGNES/SIMETH MAX STR 30 ML UDCUP PO PRN (09:55)
[2019-05-02] MEDS ORDERED: DEXTROSE 50% 25 GM/50 ML VIAL IV PRN (09:55)
[2019-05-02] MEDS ORDERED: MAGNESIUM HYDROXIDE SUSP 30 ML UDCUP PO PRN (09:55)
[2019-05-02] MEDS ORDERED: GLUCAGON 1 MG VIAL IM PRN ×2 (09:55)
[2019-05-02] MEDS ORDERED: SODIUM CHLOR 0.45% KCL 20 MEQ 20 MEQ/1,000 ML BAG IV SCH (09:55)
[2019-05-02] MEDS ORDERED: MORPHINE 4 MG/1 ML VIAL IV PRN (09:55)
[2019-05-02] MEDS ORDERED: ASCORBIC ACID 500 MG TABLET PO SCH (10:00)
[2019-05-02] MEDS: PANTOPRAZOLE 40 MG TABLET PO SCH (10:15)
[2019-05-02] MEDS: LOSARTAN 50 MG TABLET PO SCH (10:15)
[2019-05-02] MEDS: ASCORBIC ACID 500 MG TABLET PO SCH ×2 (10:16→21:46)
[2019-05-02] MEDS: CHOLECALCIFEROL 1,000 UNIT TABLET PO SCH (10:17)
[2019-05-02] MEDS: ASPIRIN EC 325 MG TABLET PO SCH (10:18)
[2019-05-02] MEDS: MAGNESIUM OXIDE 400 MG TABLET PO SCH (10:19)
[2019-05-02] MEDS: FERROUS SULFATE 325 MG TABLET PO SCH (10:20)
[2019-05-02] MEDS: CHLORHEXIDINE 0.12% ORAL RINSE 60 ML BOTTLE SWISH/SPIT SCH ×3 (10:20→21:55)
[2019-05-02] MEDS: DOCUSATE SODIUM 100 MG CAPSULE PO SCH (10:20)
[2019-05-02] MEDS: INSULIN REGULAR 100 UNIT/ML SUBCUT SCH ×2 (10:21→11:57)
[2019-05-02] MEDS: oxyCODONE/ACETAMINOPHEN 5-325 MG TABLET PO PRN ×3 (11:02→21:47)
[2019-05-02] MEDS ORDERED: INSULIN REGULAR 100 UNIT/ML ONE (11:47)
[2019-05-02] MEDS: COENZYME Q10 100 MG CAPSULE PO SCH (11:59)
[2019-05-02] MEDS ORDERED: CEFUROXIME INJ 1,500 MG in SYRINGE 1 EACH IV ONE (18:00)
[2019-05-02] MEDS: ROSUVASTATIN 20 MG TABLET PO SCH (21:46)
[2019-05-03] MEDS ORDERED: FUROSEMIDE 40 MG/4 ML VIAL IV ONE (06:00)
[2019-05-03 06:01] LABS: Basophils % 0.1 % (0.0-0.8); Hemoglobin 10.5 GM/DL (14.0-18.0); Immature Granulocytes % 0.5 %; Immature Granulocytes Absolute 0.09 #; Lymphocytes # 0.6 10*3/uL (1.4-4.0); Lymphocytes % 3.2 % (21.2-54.2); Mean Corpuscular HGB Conc 31.8 GM/DL (32-36); Mean Corpuscular Volume 90.7 FL (87-102); Monocytes % 11.1 % (1.7-12.7); Neutrophils % 85.1 % (38.7-73.9); Platelet Count 104 T/CUMM (130-400); Red Blood Count 3.64 MC/CUMM (3.8-5.5); Red Cell Distribution Width 14.7 % (9.3-17.3); White Blood Count 18.3 T/CUMM (4-12)
[2019-05-03 06:20] LABS: Albumin 3.2 G/DL (3.4-5.0); Bilirubin,Direct 0.17 MG/DL (0.0-0.20); Bilirubin,Indirect 0.8 MG/DL (0.0-1.0); CKMB % 3.8 %; Calcium 8.7 MG/DL (8.5-10.1); Hypochromasia 1+; Lymphocytes 2 % (20-55); Osmolality,Calculated 292.1 MOS/KG (273-304); Platelet Estimate Decreased; Segmented Neutrophils 92 % (50-85); Total Cells Counted 100; Total Protein 5.9 G/DL (6.4-8.3)
[2019-05-03 06:21] LABS: Microcytosis 1+
[2019-05-03 06:22] LABS: Troponin I 4.55 NG/ML (0.00-0.045)
[2019-05-03] MEDS: ASCORBIC ACID 500 MG TABLET PO SCH ×2 (09:06→21:20)
[2019-05-03] MEDS: PANTOPRAZOLE 40 MG TABLET PO SCH (09:06)
[2019-05-03] MEDS: MAGNESIUM OXIDE 400 MG TABLET PO SCH (09:06)
[2019-05-03] MEDS: ASPIRIN EC 325 MG TABLET PO SCH (09:06)
[2019-05-03] MEDS: COENZYME Q10 100 MG CAPSULE PO SCH (09:07)
[2019-05-03] MEDS: CHOLECALCIFEROL 1,000 UNIT TABLET PO SCH (09:07)
[2019-05-03] MEDS: DOCUSATE SODIUM 100 MG CAPSULE PO SCH (09:07)
[2019-05-03] MEDS: LOSARTAN 50 MG TABLET PO SCH (09:07)
[2019-05-03] MEDS: FERROUS SULFATE 325 MG TABLET PO SCH (09:08)
[2019-05-03] MEDS: CHLORHEXIDINE 0.12% ORAL RINSE 60 ML BOTTLE SWISH/SPIT SCH ×2 (09:08→21:21)
[2019-05-03] MEDS ORDERED: hydrALAZINE 20 MG/1 ML VIAL IV PRN (09:51)
[2019-05-03] MEDS: oxyCODONE/ACETAMINOPHEN 5-325 MG TABLET PO PRN ×2 (11:34→21:20)
[2019-05-03] MEDS: carvediloL 12.5 MG TABLET PO SCH ×2 (11:34→21:20)
[2019-05-03] MEDS: ROSUVASTATIN 20 MG TABLET PO SCH (21:20)
[2019-05-04 05:33] LABS: Basophils % 0.1 % (0.0-0.8); Hematocrit 29.7 VOL% (42.0-52.0); Hemoglobin 9.7 GM/DL (14.0-18.0); Immature Granulocytes % 0.6 %; Lymphocytes # 0.8 10*3/uL (1.4-4.0); Lymphocytes % 4.5 % (21.2-54.2); Mean Corpuscular HGB Conc 32.7 GM/DL (32-36); Mean Corpuscular Volume 88.1 FL (87-102); Mean Platelet Volume 13.6 FL (9.6-12.0); Monocytes % 10.6 % (1.7-12.7); Neutrophils % 84.2 % (38.7-73.9); Platelet Count 113 T/CUMM (130-400); Red Blood Count 3.37 MC/CUMM (3.8-5.5); Red Cell Distribution Width 14.6 % (9.3-17.3)
[2019-05-04 05:57] LABS: Alanine Aminotransferase 17 U/L (16-61); Albumin 2.8 G/DL (3.4-5.0); Alkaline Phosphatase 59 U/L (45-117); Aspartate Amino Transferase 17 U/L (0-37); Bilirubin,Indirect 0.5 MG/DL (0.0-1.0); Blood Urea Nitrogen 39 MG/DL (7-18); Calcium 8.7 MG/DL (8.5-10.1); Estimated Glom Filtration Rate 50 ML/MIN; Glucose 126 MG/DL (74-106); Total Protein 5.6 G/DL (6.4-8.3)
[2019-05-04 06:00] LABS: Lymphocytes 6 % (20-55); Platelet Estimate Decreased; Segmented Neutrophils 86 % (50-85); Total Cells Counted 100
[2019-05-04 06:01] LABS: Hypochromasia 1+; Microcytosis Slight
[2019-05-04] MEDS: ASCORBIC ACID 500 MG TABLET PO SCH ×2 (10:37→21:56)
[2019-05-04] MEDS: ASPIRIN EC 325 MG TABLET PO SCH (10:38)
[2019-05-04] MEDS: DOCUSATE SODIUM 100 MG CAPSULE PO SCH (10:38)
[2019-05-04] MEDS: PANTOPRAZOLE 40 MG TABLET PO SCH (10:38)
[2019-05-04] MEDS: CHOLECALCIFEROL 1,000 UNIT TABLET PO SCH (10:38)
[2019-05-04] MEDS: FERROUS SULFATE 325 MG TABLET PO SCH (10:38)
[2019-05-04] MEDS: COENZYME Q10 100 MG CAPSULE PO SCH (10:39)
[2019-05-04] MEDS: CHLORHEXIDINE 0.12% ORAL RINSE 60 ML BOTTLE SWISH/SPIT SCH ×2 (10:40→21:59)
[2019-05-04] MEDS: carvediloL 12.5 MG TABLET PO SCH ×2 (10:40→21:56)
[2019-05-04] MEDS: MAGNESIUM OXIDE 400 MG TABLET PO SCH (10:41)
[2019-05-04] MEDS: oxyCODONE/ACETAMINOPHEN 5-325 MG TABLET PO PRN ×2 (11:52→21:55)
[2019-05-04] MEDS: ROSUVASTATIN 20 MG TABLET PO SCH (21:56)
[2019-05-05] MEDS ORDERED: FUROSEMIDE 40 MG/4 ML VIAL IV ONE (06:09)
[2019-05-05] MEDS ORDERED: LORazepam 0.5 MG TABLET PO PRN (06:10)
[2019-05-05] MEDS ORDERED: BISACODYL 5 MG TABLET PO ONE (06:21)
[2019-05-05 06:48] LABS: Basophils % 0.1 % (0.0-0.8); Eosinophils % 0.2 % (0.00-10.9); Hematocrit 33.4 VOL% (42.0-52.0); Hemoglobin 10.6 GM/DL (14.0-18.0); Immature Granulocytes % 0.5 %; Immature Granulocytes Absolute 0.06 #; Lymphocytes # 0.7 10*3/uL (1.4-4.0); Lymphocytes % 5.9 % (21.2-54.2); Mean Corpuscular HGB Conc 31.7 GM/DL (32-36); Mean Corpuscular Volume 88.8 FL (87-102); Mean Platelet Volume 12.6 FL (9.6-12.0); Monocytes % 10.3 % (1.7-12.7); Platelet Count 126 T/CUMM (130-400); Red Blood Count 3.76 MC/CUMM (3.8-5.5); Red Cell Distribution Width 14.5 % (9.3-17.3); White Blood Count 12.4 T/CUMM (4-12)
[2019-05-05 07:18] LABS: Calcium 8.4 MG/DL (8.5-10.1); Osmolality,Calculated 291.1 MOS/KG (273-304)
[2019-05-05] MEDS: ASPIRIN EC 325 MG TABLET PO SCH (09:54)
[2019-05-05] MEDS: COENZYME Q10 100 MG CAPSULE PO SCH (09:54)
[2019-05-05] MEDS: DOCUSATE SODIUM 100 MG CAPSULE PO SCH (09:55)
[2019-05-05] MEDS: PANTOPRAZOLE 40 MG TABLET PO SCH (09:55)
[2019-05-05] MEDS: ASCORBIC ACID 500 MG TABLET PO SCH ×2 (09:55→22:04)
[2019-05-05] MEDS: carvediloL 12.5 MG TABLET PO SCH ×2 (09:56→22:04)
[2019-05-05] MEDS: POTASSIUM CHLORIDE 20 MEQ TABLET PO PRN (09:56)
[2019-05-05] MEDS: CHOLECALCIFEROL 1,000 UNIT TABLET PO SCH (09:56)
[2019-05-05] MEDS: POLYETHYLENE GLYCOL POWDER 17 GM PACK PO SCH (09:58)
[2019-05-05] MEDS: CHLORHEXIDINE 0.12% ORAL RINSE 60 ML BOTTLE SWISH/SPIT SCH ×2 (09:59→22:04)
[2019-05-05] MEDS: MAGNESIUM OXIDE 400 MG TABLET PO SCH (12:02)
[2019-05-05] MEDS: FERROUS SULFATE 325 MG TABLET PO SCH (12:02)
[2019-05-05] MEDS: ROSUVASTATIN 20 MG TABLET PO SCH (22:04)
[2019-05-06 04:50] LABS: Basophils % 0.1 % (0.0-0.8); Eosinophils # 0.1 10*3/uL (0.0-0.87); Eosinophils % 1.1 % (0.00-10.9); Hematocrit 27.5 VOL% (42.0-52.0); Hemoglobin 9.1 GM/DL (14.0-18.0); Immature Granulocytes % 0.4 %; Immature Granulocytes Absolute 0.04 #; Lymphocytes # 0.8 10*3/uL (1.4-4.0); Lymphocytes % 6.7 % (21.2-54.2); Mean Corpuscular HGB Conc 33.1 GM/DL (32-36); Mean Corpuscular Volume 87.6 FL (87-102); Monocytes % 12.9 % (1.7-12.7); Neutrophils % 78.8 % (38.7-73.9); Platelet Count 137 T/CUMM (130-400); Red Blood Count 3.14 MC/CUMM (3.8-5.5); Red Cell Distribution Width 14.1 % (9.3-17.3); White Blood Count 11.3 T/CUMM (4-12)
[2019-05-06 05:12] LABS: Alanine Aminotransferase 16 U/L (16-61); Albumin 2.5 G/DL (3.4-5.0); Alkaline Phosphatase 56 U/L (45-117); Aspartate Amino Transferase 11 U/L (0-37); Bilirubin,Indirect 0.9 MG/DL (0.0-1.0); Blood Urea Nitrogen 32 MG/DL (7-18); Estimated Glom Filtration Rate 83 ML/MIN; Glucose 103 MG/DL (74-106); Osmolality,Calculated 285.4 MOS/KG (273-304); Total Protein 5.2 G/DL (6.4-8.3)
[2019-05-06] MEDS: CHOLECALCIFEROL 1,000 UNIT TABLET PO SCH (08:33)
[2019-05-06] MEDS: POLYETHYLENE GLYCOL POWDER 17 GM PACK PO SCH (08:33)
[2019-05-06] MEDS: COENZYME Q10 100 MG CAPSULE PO SCH (08:33)
[2019-05-06] MEDS: ASPIRIN EC 325 MG TABLET PO SCH (08:34)
[2019-05-06] MEDS: MAGNESIUM OXIDE 400 MG TABLET PO SCH (08:34)
[2019-05-06] MEDS: DOCUSATE SODIUM 100 MG CAPSULE PO SCH (08:34)
[2019-05-06] MEDS: FERROUS SULFATE 325 MG TABLET PO SCH (08:34)
[2019-05-06] MEDS: carvediloL 12.5 MG TABLET PO SCH ×2 (08:36→22:17)
[2019-05-06] MEDS: PANTOPRAZOLE 40 MG TABLET PO SCH (08:36)
[2019-05-06] MEDS: ASCORBIC ACID 500 MG TABLET PO SCH ×2 (08:36→22:15)
[2019-05-06] MEDS: POTASSIUM CHLORIDE 20 MEQ TABLET PO PRN ×2 (08:36→10:00)
[2019-05-06] MEDS: IBUPROFEN 200 MG TABLET PO SCH ×4 (09:33→22:16)
[2019-05-06] MEDS: ACETAMINOPHEN 325 MG TABLET PO SCH ×4 (09:34→22:16)
[2019-05-06] MEDS: CHLORHEXIDINE 0.12% ORAL RINSE 60 ML BOTTLE SWISH/SPIT SCH ×2 (09:35→22:17)
[2019-05-06] MEDS: ROSUVASTATIN 20 MG TABLET PO SCH (22:15)
[2019-05-07 05:14] LABS: Basophils % 0.1 % (0.0-0.8); Eosinophils # 0.5 10*3/uL (0.0-0.87); Eosinophils % 4.2 % (0.00-10.9); Hematocrit 30.1 VOL% (42.0-52.0); Hemoglobin 9.8 GM/DL (14.0-18.0); Immature Granulocytes % 0.6 %; Immature Granulocytes Absolute 0.06 #; Lymphocytes # 0.9 10*3/uL (1.4-4.0); Lymphocytes % 8.3 % (21.2-54.2); Mean Corpuscular HGB Conc 32.6 GM/DL (32-36); Mean Platelet Volume 12.9 FL (9.6-12.0); Monocytes % 12.8 % (1.7-12.7); Platelet Count 175 T/CUMM (130-400); Red Blood Count 3.42 MC/CUMM (3.8-5.5); Red Cell Distribution Width 14.2 % (9.3-17.3); White Blood Count 10.8 T/CUMM (4-12)
[2019-05-07 05:29] LABS: Alanine Aminotransferase 17 U/L (16-61); Albumin 2.5 G/DL (3.4-5.0); Alkaline Phosphatase 60 U/L (45-117); Aspartate Amino Transferase 13 U/L (0-37); Bilirubin,Indirect 0.4 MG/DL (0.0-1.0); Blood Urea Nitrogen 28 MG/DL (7-18); Calcium 8.1 MG/DL (8.5-10.1); Estimated Glom Filtration Rate 75 ML/MIN; Glucose 107 MG/DL (74-106); Osmolality,Calculated 280.7 MOS/KG (273-304); Total Protein 5.6 G/DL (6.4-8.3)
[2019-05-07 05:53] LABS: Troponin I 0.727 NG/ML (0.00-0.045)
[2019-05-07] MEDS ORDERED: TAMSULOSIN 0.4 MG CAPSULE PO ONE (07:38)
[2019-05-07] MEDS: POLYETHYLENE GLYCOL POWDER 17 GM PACK PO SCH (09:09)
[2019-05-07] MEDS: FERROUS SULFATE 325 MG TABLET PO SCH (09:10)
[2019-05-07] MEDS: IBUPROFEN 200 MG TABLET PO SCH ×4 (09:10→20:58)
[2019-05-07] MEDS: ASCORBIC ACID 500 MG TABLET PO SCH ×2 (09:10→20:33)
[2019-05-07] MEDS: CHOLECALCIFEROL 1,000 UNIT TABLET PO SCH (09:10)
[2019-05-07] MEDS: ASPIRIN EC 325 MG TABLET PO SCH (09:10)
[2019-05-07] MEDS: MAGNESIUM OXIDE 400 MG TABLET PO SCH (09:10)
[2019-05-07] MEDS: DOCUSATE SODIUM 100 MG CAPSULE PO SCH (09:11)
[2019-05-07] MEDS: PANTOPRAZOLE 40 MG TABLET PO SCH (09:11)
[2019-05-07] MEDS: ACETAMINOPHEN 325 MG TABLET PO SCH ×4 (09:11→20:33)
[2019-05-07] MEDS: COENZYME Q10 100 MG CAPSULE PO SCH (09:11)
[2019-05-07] MEDS: CHLORHEXIDINE 0.12% ORAL RINSE 60 ML BOTTLE SWISH/SPIT SCH ×2 (09:11→20:34)
[2019-05-07] MEDS: carvediloL 12.5 MG TABLET PO SCH ×2 (09:11→20:33)
[2019-05-07] MEDS: TAMSULOSIN 0.4 MG CAPSULE PO SCH (09:12)
[2019-05-07 17:48] LABS: Apearance,Urine Slightly Hazy (Clear); Bilirubin,Urine Negative (Negative); Blood, Urine Large mg/dL (Negative); Glucose,Urine (UA) Negative (Negative); Ketones,Urine Negative (Negative); Mucus,Urine Occasional /LPF (Occasional); Nitrite,Urine Negative (Negative); Protein,Urine 30 MG/DL; RBC,Urine 9 /HPF (0-4); Urine Color Amber (Yellow); Urine Specific Gravity 1.011 (1.001-1.035); Urine Urobilinogen < 2.0 EU/DL (0.2-1.0); WBC,Urine 2 /HPF (0-6)
[2019-05-07] MEDS: ROSUVASTATIN 20 MG TABLET PO SCH (20:33)
[2019-05-07] MEDS: hydrALAZINE 25 MG TABLET PO SCH (20:33)
[2019-05-08] MEDS: POLYETHYLENE GLYCOL POWDER 17 GM PACK PO SCH (09:16)
[2019-05-08] MEDS: CHOLECALCIFEROL 1,000 UNIT TABLET PO SCH (09:18)
[2019-05-08] MEDS: MAGNESIUM OXIDE 400 MG TABLET PO SCH (09:19)
[2019-05-08] MEDS: COENZYME Q10 100 MG CAPSULE PO SCH (09:19)
[2019-05-08] MEDS: ASPIRIN EC 325 MG TABLET PO SCH (09:19)
[2019-05-08] MEDS: LOSARTAN 25 MG TABLET PO SCH (09:19)
[2019-05-08] MEDS: carvediloL 12.5 MG TABLET PO SCH ×2 (09:19→22:01)
[2019-05-08] MEDS: ASCORBIC ACID 500 MG TABLET PO SCH ×2 (09:19→22:01)
[2019-05-08] MEDS: FERROUS SULFATE 325 MG TABLET PO SCH (09:20)
[2019-05-08] MEDS: PANTOPRAZOLE 40 MG TABLET PO SCH (09:20)
[2019-05-08] MEDS: TAMSULOSIN 0.4 MG CAPSULE PO SCH (09:20)
[2019-05-08] MEDS: DOCUSATE SODIUM 100 MG CAPSULE PO SCH (09:20)
[2019-05-08] MEDS: ACETAMINOPHEN 325 MG TABLET PO SCH ×4 (09:20→22:00)
[2019-05-08] MEDS: CHLORHEXIDINE 0.12% ORAL RINSE 60 ML BOTTLE SWISH/SPIT SCH ×2 (09:21→22:02)
[2019-05-08] MEDS: IBUPROFEN 200 MG TABLET PO SCH ×4 (09:25→22:01)
[2019-05-08] MEDS: hydrALAZINE 25 MG TABLET PO SCH ×2 (09:26→22:01)
[2019-05-08] MEDS: DUTASTERIDE 0.5 MG CAPSULE PO SCH (12:26)
[2019-05-08] MEDS: ROSUVASTATIN 20 MG TABLET PO SCH (22:01)
[2019-05-09 02:51] LABS: Basophils % 0.1 % (0.0-0.8); Eosinophils # 0.4 10*3/uL (0.0-0.87); Eosinophils % 4.4 % (0.00-10.9); Hematocrit 27.4 VOL% (42.0-52.0); Hemoglobin 8.9 GM/DL (14.0-18.0); Immature Granulocytes % 0.7 %; Immature Granulocytes Absolute 0.06 #; Lymphocytes # 0.9 10*3/uL (1.4-4.0); Lymphocytes % 10.6 % (21.2-54.2); Mean Corpuscular HGB Conc 32.5 GM/DL (32-36); Mean Corpuscular Volume 88.1 FL (87-102); Mean Platelet Volume 12.3 FL (9.6-12.0); Monocytes % 13.3 % (1.7-12.7); Neutrophils % 70.9 % (38.7-73.9); Platelet Count 212 T/CUMM (130-400); Red Blood Count 3.11 MC/CUMM (3.8-5.5); Red Cell Distribution Width 14.3 % (9.3-17.3); White Blood Count 8.7 T/CUMM (4-12)
[2019-05-09 03:06] LABS: Calcium 7.8 MG/DL (8.5-10.1); Osmolality,Calculated 285.4 MOS/KG (273-304)
[2019-05-09] MEDS: POLYETHYLENE GLYCOL POWDER 17 GM PACK PO SCH (08:55)
[2019-05-09] MEDS: LOSARTAN 25 MG TABLET PO SCH (09:00)
[2019-05-09] MEDS: hydrALAZINE 25 MG TABLET PO SCH ×2 (09:00→21:49)
[2019-05-09] MEDS: COENZYME Q10 100 MG CAPSULE PO SCH (09:00)
[2019-05-09] MEDS: DUTASTERIDE 0.5 MG CAPSULE PO SCH (09:00)
[2019-05-09] MEDS: CHOLECALCIFEROL 1,000 UNIT TABLET PO SCH (09:00)
[2019-05-09] MEDS: ASPIRIN EC 325 MG TABLET PO SCH (09:00)
[2019-05-09] MEDS: carvediloL 12.5 MG TABLET PO SCH ×2 (09:01→21:49)
[2019-05-09] MEDS: ACETAMINOPHEN 325 MG TABLET PO SCH ×4 (09:01→21:49)
[2019-05-09] MEDS: ASCORBIC ACID 500 MG TABLET PO SCH ×2 (09:01→21:49)
[2019-05-09] MEDS: TAMSULOSIN 0.4 MG CAPSULE PO SCH (09:01)
[2019-05-09] MEDS: DOCUSATE SODIUM 100 MG CAPSULE PO SCH (09:01)
[2019-05-09] MEDS: FERROUS SULFATE 325 MG TABLET PO SCH (09:01)
[2019-05-09] MEDS: IBUPROFEN 200 MG TABLET PO SCH ×4 (09:02→21:48)
[2019-05-09] MEDS: CHLORHEXIDINE 0.12% ORAL RINSE 60 ML BOTTLE SWISH/SPIT SCH ×2 (09:03→21:48)
[2019-05-09] MEDS: MAGNESIUM OXIDE 400 MG TABLET PO SCH (09:03)
[2019-05-09] MEDS: PANTOPRAZOLE 40 MG TABLET PO SCH (09:21)
[2019-05-09] MEDS ORDERED: LOSARTAN 25 MG TABLET PO ONE (10:21)
[2019-05-09] MEDS: ROSUVASTATIN 20 MG TABLET PO SCH (21:49)
[2019-05-10 02:58] LABS: Basophils % 0.2 % (0.0-0.8); Eosinophils # 0.4 10*3/uL (0.0-0.87); Eosinophils % 4.2 % (0.00-10.9); Immature Granulocytes % 0.7 %; Immature Granulocytes Absolute 0.06 #; Lymphocytes # 1.1 10*3/uL (1.4-4.0); Lymphocytes % 12.3 % (21.2-54.2); Mean Corpuscular HGB Conc 32.1 GM/DL (32-36); Mean Corpuscular Volume 88.3 FL (87-102); Monocytes % 12.8 % (1.7-12.7); Neutrophils % 69.8 % (38.7-73.9); Platelet Count 233 T/CUMM (130-400); Red Blood Count 3.17 MC/CUMM (3.8-5.5); Red Cell Distribution Width 14.4 % (9.3-17.3); White Blood Count 8.5 T/CUMM (4-12)
[2019-05-10 03:14] LABS: Calcium 8.3 MG/DL (8.5-10.1); Osmolality,Calculated 286.3 MOS/KG (273-304)
[2019-05-10] MEDS ORDERED: ISOSORBIDE MONONITRATE 30 MG TABLET PO STA (07:51)
[2019-05-10] MEDS: CLOPIDOGREL 75 MG TABLET PO SCH (09:53)
[2019-05-10] MEDS: POLYETHYLENE GLYCOL POWDER 17 GM PACK PO SCH (09:53)
[2019-05-10] MEDS: CHOLECALCIFEROL 1,000 UNIT TABLET PO SCH (09:53)
[2019-05-10] MEDS: TAMSULOSIN 0.4 MG CAPSULE PO SCH (09:54)
[2019-05-10] MEDS: COENZYME Q10 100 MG CAPSULE PO SCH (09:54)
[2019-05-10] MEDS: carvediloL 12.5 MG TABLET PO SCH ×2 (09:54→21:42)
[2019-05-10] MEDS: FERROUS SULFATE 325 MG TABLET PO SCH (09:54)
[2019-05-10] MEDS: ASPIRIN EC 325 MG TABLET PO SCH (09:54)
[2019-05-10] MEDS: DOCUSATE SODIUM 100 MG CAPSULE PO SCH (09:54)
[2019-05-10] MEDS: ASCORBIC ACID 500 MG TABLET PO SCH ×2 (09:54→21:41)
[2019-05-10] MEDS: DUTASTERIDE 0.5 MG CAPSULE PO SCH (09:54)
[2019-05-10] MEDS: IBUPROFEN 200 MG TABLET PO SCH ×4 (09:55→21:43)
[2019-05-10] MEDS: MAGNESIUM OXIDE 400 MG TABLET PO SCH (09:55)
[2019-05-10] MEDS: PANTOPRAZOLE 40 MG TABLET PO SCH (09:55)
[2019-05-10] MEDS: LOSARTAN 50 MG TABLET PO SCH (09:55)
[2019-05-10] MEDS: hydrALAZINE 25 MG TABLET PO SCH ×2 (09:55→21:43)
[2019-05-10] MEDS: ACETAMINOPHEN 325 MG TABLET PO SCH ×4 (09:56→21:42)
[2019-05-10] MEDS: CHLORHEXIDINE 0.12% ORAL RINSE 60 ML BOTTLE SWISH/SPIT SCH ×2 (09:56→21:41)
[2019-05-10] MEDS: ROSUVASTATIN 20 MG TABLET PO SCH (21:43)
[2019-05-11 04:48] LABS: Basophils % 0.3 % (0.0-0.8); Eosinophils # 0.3 10*3/uL (0.0-0.87); Eosinophils % 3.6 % (0.00-10.9); Hematocrit 27.4 VOL% (42.0-52.0); Hemoglobin 8.7 GM/DL (14.0-18.0); Immature Granulocytes % 0.6 %; Immature Granulocytes Absolute 0.04 #; Lymphocytes # 0.9 10*3/uL (1.4-4.0); Lymphocytes % 12.7 % (21.2-54.2); Mean Corpuscular HGB Conc 31.8 GM/DL (32-36); Mean Corpuscular Volume 88.7 FL (87-102); Mean Platelet Volume 11.8 FL (9.6-12.0); Monocytes % 12.7 % (1.7-12.7); Neutrophils % 70.1 % (38.7-73.9); Platelet Count 225 T/CUMM (130-400); Red Blood Count 3.09 MC/CUMM (3.8-5.5); Red Cell Distribution Width 14.6 % (9.3-17.3)
[2019-05-11 05:11] LABS: Calcium 8.2 MG/DL (8.5-10.1); Osmolality,Calculated 284.3 MOS/KG (273-304)
[2019-05-11] MEDS ORDERED: ASPIRIN EC 81 MG TABLET PO SCH (09:00)
[2019-05-11] MEDS ORDERED: ISOSORBIDE MONONITRATE 30 MG TABLET PO SCH (09:00)
[2019-05-11] MEDS: POLYETHYLENE GLYCOL POWDER 17 GM PACK PO SCH (10:13)
[2019-05-11] MEDS: MAGNESIUM OXIDE 400 MG TABLET PO SCH (10:14)
[2019-05-11] MEDS: COENZYME Q10 100 MG CAPSULE PO SCH (10:14)
[2019-05-11] MEDS: CHOLECALCIFEROL 1,000 UNIT TABLET PO SCH (10:14)
[2019-05-11] MEDS: ASCORBIC ACID 500 MG TABLET PO SCH (10:15)
[2019-05-11] MEDS: DOCUSATE SODIUM 100 MG CAPSULE PO SCH (10:15)
[2019-05-11] MEDS: LOSARTAN 50 MG TABLET PO SCH (10:15)
[2019-05-11] MEDS: TAMSULOSIN 0.4 MG CAPSULE PO SCH (10:15)
[2019-05-11] MEDS: DUTASTERIDE 0.5 MG CAPSULE PO SCH (10:15)
[2019-05-11] MEDS: CLOPIDOGREL 75 MG TABLET PO SCH (10:15)
[2019-05-11] MEDS: ACETAMINOPHEN 325 MG TABLET PO SCH ×2 (10:16→12:44)
[2019-05-11] MEDS: FERROUS SULFATE 325 MG TABLET PO SCH (10:16)
[2019-05-11] MEDS: hydrALAZINE 25 MG TABLET PO SCH (10:16)
[2019-05-11] MEDS: carvediloL 12.5 MG TABLET PO SCH (10:16)
[2019-05-11] MEDS: IBUPROFEN 200 MG TABLET PO SCH ×2 (10:17→12:43)
[2019-05-11] MEDS: PANTOPRAZOLE 40 MG TABLET PO SCH (10:20)
[2019-05-11] MEDS: CHLORHEXIDINE 0.12% ORAL RINSE 60 ML BOTTLE SWISH/SPIT SCH (10:21)
[2019-05-11 15:48] VITALS: BP 153/75
== END 2019-05-11 16:04 | disposition home health service (06) | DRG 233 ==
LOC: N.ED 12:19 → N.EDINP 14:19 → INTOOBSV 14:19 → N.TELES 14:37 → N.CVR 05-01 13:06 → N.TELES 05-02 12:03
PROVIDERS: ADMIT Family Medicine
PROC: CLCCHCL (ICD-10-PCS; 2019-04-27 08:15)

== ENCOUNTER 2021-09-12 06:41 | Inpatient (IN) ==
[2021-09-12] MEDS ORDERED: ONDANSETRON 4 MG/2 ML VIAL IV STA (07:09)
[2021-09-12] MEDS ORDERED: HYDROmorphone 1 MG/1 ML SYRINGE IV STA (07:09)
[2021-09-12 08:03] LABS: Basophils % 0.1 % (0.0-0.8); Eosinophils % 0.1 % (0.00-10.9); Hematocrit 42.1 VOL% (42.0-52.0); Immature Granulocytes % 0.5 %; Immature Granulocytes Absolute 0.05 #; Lymphocytes # 1.1 10*3/uL (1.4-4.0); Lymphocytes % 10.5 % (21.2-54.2); Mean Corpuscular HGB Conc 36.6 GM/DL (32-36); Mean Corpuscular Volume 78.3 FL (87-102); Monocytes % 7.2 % (1.7-12.7); Neutrophils % 81.6 % (38.7-73.9); Platelet Count 220 T/CUMM (130-400); Red Blood Count 5.38 MC/CUMM (3.8-5.5); White Blood Count 10.6 T/CUMM (4-12)
[2021-09-12 08:04] LABS: Hemoglobin 15.4 GM/DL (14.0-18.0)
[2021-09-12 08:05] LABS: Calcium 8.4 MG/DL (8.5-10.1); Osmolality,Calculated 240.8 MOS/KG (273-304); Potassium 2.9 MMOL/L (3.5-5.1)
[2021-09-12] MEDS ORDERED: traZODone 50 MG TABLET PO PRN (08:41)
[2021-09-12] MEDS ORDERED: hydrALAZINE 20 MG/1 ML VIAL IV PRN (08:41)
[2021-09-12] MEDS ORDERED: ONDANSETRON 4 MG/2 ML VIAL IV PRN (08:41)
[2021-09-12] MEDS ORDERED: GLUCAGON 1 MG VIAL IM PRN (08:41)
[2021-09-12] MEDS ORDERED: DEXTROSE 10% 250 ML BAG IV PRN (08:41)
[2021-09-12] MEDS ORDERED: LACTULOSE 20 GM/30 ML UDCUP PO PRN (08:41)
[2021-09-12] MEDS ORDERED: DOCUSATE SODIUM 100 MG CAPSULE PO PRN (08:41)
[2021-09-12] MEDS ORDERED: ACETAMINOPHEN 325 MG TABLET PO PRN (08:41)
[2021-09-12 09:26] LABS: Arterial Base Excess iSTAT -2 MMOL/L (-2.5-2.5); Arterial Bicarbonate iSTAT 22.6 MMOL/L (20-26); Arterial O2 Saturation iSTAT 97 % (95-100); Arterial PCO2 iSTAT 37 MM HG (35-48); Arterial PO2 iSTAT 94 MM HG (80-95); Arterial Total CO2 iSTAT 24 MMO/L (23-27); Arterial pH iSTAT 7.396 (7.35-7.45)
[2021-09-12] MEDS ORDERED: POTASSIUM CHLORIDE 20 MEQ TABLET PO PRN (10:18)
[2021-09-12] MEDS ORDERED: POTASSIUM CHLORIDE 20 MEQ TABLET PO ONE ×2 (10:19→15:31)
[2021-09-12] MEDS: PANTOPRAZOLE 40 MG TABLET PO SCH (10:20)
[2021-09-12] MEDS: ENOXAPARIN 40 MG/0.4 ML SYRINGE SUBCUT SCH (10:20)
[2021-09-12] MEDS ORDERED: carvediloL 6.25 MG TABLET PO SCH (11:00)
[2021-09-12] MEDS: SODIUM CHLORIDE 0.9% 1,000 ML IV SCH (11:29)
[2021-09-12] MEDS: SACUBITRIL/VALSARTAN 49-51 MG TABLET PO SCH ×2 (11:45→21:15)
[2021-09-12] MEDS: amLODIPine 2.5 MG TABLET PO SCH (11:45)
[2021-09-12] MEDS: HYDROmorphone 1 MG/1 ML SYRINGE IV PRN ×2 (11:45→19:19)
[2021-09-12 14:49] LABS: Calcium 7.9 MG/DL (8.5-10.1); Osmolality,Calculated 239.6 MOS/KG (273-304); Potassium 2.9 MMOL/L (3.5-5.1)
[2021-09-12 18:16] LABS: Calcium 8.8 MG/DL (8.5-10.1); Osmolality,Calculated 240.8 MOS/KG (273-304); Potassium 3.9 MMOL/L (3.5-5.1)
[2021-09-12] MEDS: ROSUVASTATIN 20 MG TABLET PO SCH (21:15)
[2021-09-12] MEDS: carvediloL 12.5 MG TABLET PO SCH (21:15)
[2021-09-12] MEDS: ASCORBIC ACID 500 MG TABLET PO SCH (21:15)
[2021-09-13] MEDS: SODIUM CHLORIDE 0.9% 1,000 ML IV SCH ×2 (01:04→17:39)
[2021-09-13 05:22] LABS: Basophils % 0.1 % (0.0-0.8); Eosinophils % 0.1 % (0.00-10.9); Hematocrit 37.6 VOL% (42.0-52.0); Hemoglobin 13.5 GM/DL (14.0-18.0); Immature Granulocytes % 0.3 %; Immature Granulocytes Absolute 0.04 #; Lymphocytes # 1.3 10*3/uL (1.4-4.0); Mean Corpuscular HGB Conc 35.9 GM/DL (32-36); Mean Corpuscular Volume 80.2 FL (87-102); Monocytes % 10.1 % (1.7-12.7); Neutrophils % 79.4 % (38.7-73.9); Platelet Count 197 T/CUMM (130-400); Red Blood Count 4.69 MC/CUMM (3.8-5.5); White Blood Count 12.6 T/CUMM (4-12)
[2021-09-13 05:53] LABS: Albumin 2.7 G/DL (3.4-5.0); Bilirubin,Total 0.6 MG/DL (0.20-1.00); Calcium 8.5 MG/DL (8.5-10.1); Osmolality,Calculated 246.9 MOS/KG (273-304); Potassium 3.4 MMOL/L (3.5-5.1); Risk Ratio 1.93; Thyroid Stimulating Hormone 0.809 uIU/ml (0.358-3.74); Total Protein 5.8 G/DL (6.4-8.2); VLDL Cholesterol 13.6 MG/DL
[2021-09-13] MEDS ORDERED: MAGNESIUM SULF RIDER 2 GM/50 ML PREMIX IV ONE (08:43)
[2021-09-13] MEDS: PANTOPRAZOLE 40 MG TABLET PO SCH (09:12)
[2021-09-13] MEDS: SACUBITRIL/VALSARTAN 49-51 MG TABLET PO SCH ×2 (09:12→21:02)
[2021-09-13] MEDS: amLODIPine 2.5 MG TABLET PO SCH (09:12)
[2021-09-13] MEDS: ASPIRIN EC 81 MG TABLET PO SCH (09:12)
[2021-09-13] MEDS: carvediloL 12.5 MG TABLET PO SCH ×2 (09:12→21:02)
[2021-09-13] MEDS: ENOXAPARIN 40 MG/0.4 ML SYRINGE SUBCUT SCH (09:12)
[2021-09-13] MEDS: ASCORBIC ACID 500 MG TABLET PO SCH ×2 (09:12→21:02)
[2021-09-13] MEDS: CHOLESTYRAMINE 4 GM PACK PO SCH (11:31)
[2021-09-13] MEDS: ROSUVASTATIN 20 MG TABLET PO SCH (21:02)
[2021-09-14 05:14] LABS: Basophils % 0.2 % (0.0-0.8); Eosinophils # 0.1 10*3/uL (0.0-0.87); Eosinophils % 0.7 % (0.00-10.9); Hematocrit 35.3 VOL% (42.0-52.0); Hemoglobin 12.4 GM/DL (14.0-18.0); Immature Granulocytes % 0.5 %; Immature Granulocytes Absolute 0.04 #; Lymphocytes # 1.4 10*3/uL (1.4-4.0); Lymphocytes % 15.3 % (21.2-54.2); Mean Corpuscular HGB Conc 35.1 GM/DL (32-36); Mean Corpuscular Volume 81.1 FL (87-102); Mean Platelet Volume 11.3 FL (9.6-12.0); Monocytes % 13.3 % (1.7-12.7); Platelet Count 187 T/CUMM (130-400); Red Blood Count 4.35 MC/CUMM (3.8-5.5); Red Cell Distribution Width 13.4 % (9.3-17.3); White Blood Count 8.9 T/CUMM (4-12)
[2021-09-14 05:34] LABS: Calcium 8.2 MG/DL (8.5-10.1); Osmolality,Calculated 262.8 MOS/KG (273-304); Potassium 3.5 MMOL/L (3.5-5.1)
[2021-09-14] MEDS: SACUBITRIL/VALSARTAN 49-51 MG TABLET PO SCH ×2 (10:48→21:09)
[2021-09-14] MEDS: PANTOPRAZOLE 40 MG TABLET PO SCH (10:48)
[2021-09-14] MEDS: ASCORBIC ACID 500 MG TABLET PO SCH ×2 (10:48→21:09)
[2021-09-14] MEDS: ASPIRIN EC 81 MG TABLET PO SCH (10:48)
[2021-09-14] MEDS: amLODIPine 2.5 MG TABLET PO SCH (10:48)
[2021-09-14] MEDS: ENOXAPARIN 40 MG/0.4 ML SYRINGE SUBCUT SCH (10:48)
[2021-09-14] MEDS: carvediloL 12.5 MG TABLET PO SCH ×2 (10:48→21:09)
[2021-09-14] MEDS: SODIUM CHLORIDE 0.9% 1,000 ML IV SCH (10:49)
[2021-09-14] MEDS: CHOLESTYRAMINE 4 GM PACK PO SCH (10:49)
[2021-09-14] MEDS: ROSUVASTATIN 20 MG TABLET PO SCH (21:09)
[2021-09-15] MEDS: SODIUM CHLORIDE 0.9% 1,000 ML IV SCH ×2 (00:55→14:26)
[2021-09-15 05:07] LABS: Basophils % 0.2 % (0.0-0.8); Eosinophils # 0.1 10*3/uL (0.0-0.87); Eosinophils % 0.9 % (0.00-10.9); Immature Granulocytes % 0.5 %; Immature Granulocytes Absolute 0.04 #; Lymphocytes # 1.3 10*3/uL (1.4-4.0); Lymphocytes % 16.2 % (21.2-54.2); Mean Corpuscular HGB Conc 34.3 GM/DL (32-36); Mean Corpuscular Volume 83.1 FL (87-102); Mean Platelet Volume 10.7 FL (9.6-12.0); Monocytes % 11.4 % (1.7-12.7); Neutrophils % 70.8 % (38.7-73.9); Platelet Count 189 T/CUMM (130-400); Red Blood Count 4.21 MC/CUMM (3.8-5.5); Red Cell Distribution Width 14.1 % (9.3-17.3); White Blood Count 8.1 T/CUMM (4-12)
[2021-09-15 05:35] LABS: Calcium 7.8 MG/DL (8.5-10.1); Potassium 3.3 MMOL/L (3.5-5.1)
[2021-09-15] MEDS ORDERED: POTASSIUM CHLORIDE 20 MEQ TABLET PO ONE (08:17)
[2021-09-15] MEDS: DOCUSATE SODIUM 100 MG CAPSULE PO SCH ×2 (09:48→22:13)
[2021-09-15] MEDS: ENOXAPARIN 40 MG/0.4 ML SYRINGE SUBCUT SCH (09:48)
[2021-09-15] MEDS: PANTOPRAZOLE 40 MG TABLET PO SCH (09:48)
[2021-09-15] MEDS: amLODIPine 2.5 MG TABLET PO SCH (09:48)
[2021-09-15] MEDS: ASCORBIC ACID 500 MG TABLET PO SCH (09:48)
[2021-09-15] MEDS: ASPIRIN EC 81 MG TABLET PO SCH (09:48)
[2021-09-15] MEDS: SACUBITRIL/VALSARTAN 49-51 MG TABLET PO SCH ×2 (09:48→22:17)
[2021-09-15] MEDS: carvediloL 12.5 MG TABLET PO SCH (09:50)
[2021-09-15] MEDS ORDERED: amLODIPine 2.5 MG TABLET PO ONE (11:12)
[2021-09-15] MEDS ORDERED: SACUBITRIL/VALSARTAN 49-51 MG TABLET PO SCH (21:00)
[2021-09-15] MEDS: carvediloL 6.25 MG TABLET PO SCH (22:13)
[2021-09-16 05:14] LABS: Basophils % 0.4 % (0.0-0.8); Eosinophils # 0.1 10*3/uL (0.0-0.87); Eosinophils % 1.5 % (0.00-10.9); Hematocrit 35.4 VOL% (42.0-52.0); Hemoglobin 12.1 GM/DL (14.0-18.0); Immature Granulocytes % 0.4 %; Immature Granulocytes Absolute 0.03 #; Lymphocytes # 1.5 10*3/uL (1.4-4.0); Lymphocytes % 18.5 % (21.2-54.2); Mean Corpuscular HGB Conc 34.2 GM/DL (32-36); Mean Corpuscular Volume 84.3 FL (87-102); Mean Platelet Volume 10.5 FL (9.6-12.0); Monocytes % 11.7 % (1.7-12.7); Neutrophils % 67.5 % (38.7-73.9); Platelet Count 203 T/CUMM (130-400); Red Cell Distribution Width 14.2 % (9.3-17.3); White Blood Count 8.2 T/CUMM (4-12)
[2021-09-16 05:33] LABS: Calcium 8.5 MG/DL (8.5-10.1)
[2021-09-16 05:56] LABS: Osmolality,Calculated 272.1 MOS/KG (273-304); Potassium 3.9 MMOL/L (3.5-5.1)
[2021-09-16] MEDS: SACUBITRIL/VALSARTAN 49-51 MG TABLET PO SCH (08:32)
[2021-09-16] MEDS: DOCUSATE SODIUM 100 MG CAPSULE PO SCH (08:34)
[2021-09-16] MEDS: carvediloL 6.25 MG TABLET PO SCH (08:35)
[2021-09-16] MEDS: PANTOPRAZOLE 40 MG TABLET PO SCH (08:35)
[2021-09-16] MEDS: ASPIRIN EC 81 MG TABLET PO SCH (08:36)
[2021-09-16] MEDS: ENOXAPARIN 40 MG/0.4 ML SYRINGE SUBCUT SCH (08:37)
[2021-09-16] MEDS: SODIUM CHLORIDE 0.9% 1,000 ML IV SCH (08:41)
[2021-09-16] MEDS ORDERED: CYANOCOBALAMIN 500 MCG TABLET PO SCH (09:00)
[2021-09-16] MEDS ORDERED: ROSUVASTATIN 20 MG TABLET PO SCH (09:00)
[2021-09-16] MEDS ORDERED: MAGNESIUM OXIDE 400 MG TABLET PO SCH (09:00)
[2021-09-16] MEDS ORDERED: CHOLECALCIFEROL 1,000 UNIT TABLET PO SCH (09:00)
[2021-09-16] MEDS ORDERED: amLODIPine 5 MG TABLET PO SCH (09:00)
[2021-09-16] MEDS ORDERED: ASCORBIC ACID 500 MG TABLET PO SCH (09:00)
[2021-09-16] MEDS ORDERED: EZETIMIBE 10 MG TABLET PO SCH (09:00)
[2021-09-16 09:53] VITALS: BP 157/70
== END 2021-09-16 12:50 | disposition home or self-care (01) | DRG 552 ==
LOC: EDBD → EDUNIT# → N.ED 06:41 → SUATTDRO 08:40 → N.EDINP 08:40 → N.TELEN 14:15
PROVIDERS: ADMIT Hospitalist; ATTEND Internal Medicine